=== PATIENT | female | born 1975 | race Two or more races ===

== ENCOUNTER → 2017-05-11 07:51 | Outpatient (CLI) | payer OTHER ==
[~2017-05-11] VITALS: Ht 152.4 cm; Wt 53.1 kg
[~2017-05-11 07:51] MED LIST: BUCALSEP SPRAY30 ML MM; FIORICET 50-301 EACH PO; GILTUSS TR TAB1 EACH PO; HYZAAR 50-12.1 UDTAB; LEVAQUIN500 MG PO; MAXITROL EYE DRO5 ML OP; TOBREX 0.30.15 MG/DR OP; TOPROL XL25 M1 PO; URETRON DS1 TAB PO; VOLTAREM 50 MG PO; ZANTAC300 MG PO; ZITHROMAX TRI-500 MG PO; ZYRTEC10 MG PO
== END | disposition home or self-care (01) ==
LOC: PPHC 07:51
DX: M54.89 Other dorsalgia (principal); Z87.442 Personal history of urinary calculi

== ENCOUNTER 2017-05-11 09:21 | Outpatient (CLI) | payer OTHER | END 2017-05-11 10:02 | disposition home or self-care (01) | LOC: LAB 09:21 | DX: M54.9 Dorsalgia, unspecified (principal); Z87.442 Personal history of urinary calculi ==

== ENCOUNTER → 2017-05-26 | Emergency (ER) | payer OTHER ==
[~2017-05-26] VITALS: Ht 154.9 cm; Wt 53.1 kg
== END | disposition home or self-care (01) ==
LOC: ER 17:18
DX: N12 Tubulo-interstitial nephritis, not specified as acute or chronic (principal); N30.80 Other cystitis without hematuria

== ENCOUNTER 2017-07-18 04:02 | Emergency (ER) | payer OTHER ==
[~2017-07-18] VITALS: Ht 154.9 cm; Wt 54.9 kg
[2017-07-18] MEDS ORDERED: HYZAAR 50-12.51 EACH (04:23)
[2017-07-18] MEDS ORDERED: PROZAC40 MG (04:24)
[2017-07-18] MEDS ORDERED: WELLBUTRIN SR150 MG (04:24)
== END 2017-07-18 08:47 | disposition home or self-care (01) ==
LOC: ER 04:02
DX: R51 Headache (principal); M62.838 Other muscle spasm

== ENCOUNTER 2017-07-27 12:49 | Outpatient (CLI) | payer OTHER ==
[~2017-07-27 12:49] MED LIST changes: +HYZAAR 50-12.51 EACH; +PROZAC40 MG; +WELLBUTRIN SR150 MG
== END 2017-07-27 17:11 | disposition home or self-care (01) ==
LOC: LAB 12:49
DX: N20.0 Calculus of kidney (principal); E83.52 Hypercalcemia

== ENCOUNTER → 2017-09-06 | Outpatient (CLI) | payer OTHER | END | disposition home or self-care (01) | LOC: PPHC 15:43 | DX: J06.9 Acute upper respiratory infection, unspecified (principal) ==

== ENCOUNTER 2018-02-28 16:25 | Emergency (ER) | payer OTHER ==
[~2018-02-28] VITALS: Ht 154.9 cm; Wt 60.3 kg
== END 2018-02-28 20:42 | disposition home or self-care (01) ==
LOC: ER 16:25
DX: R53.81 Other malaise (principal)

== ENCOUNTER 2018-03-19 07:15 | Emergency (ER) | payer OTHER ==
[~2018-03-19] VITALS: Ht 154.9 cm; Wt 60.3 kg
[2018-03-19] MEDS ORDERED: AMBIEN10 MG (07:39)
== END 2018-03-19 09:30 | disposition home or self-care (01) ==
LOC: ER 07:15
DX: H01.002 Unspecified blepharitis right lower eyelid (principal)

== ENCOUNTER 2018-07-29 08:03 | Outpatient (CLI) | payer OTHER ==
[~2018-07-29 08:03] MED LIST changes: +AMBIEN10 MG
== END 2018-07-29 08:12 | disposition home or self-care (01) ==
LOC: LAB 08:03
DX: I10 Essential (primary) hypertension (principal); E03.8 Other specified hypothyroidism; E55.9 Vitamin D deficiency, unspecified; E78.2 Mixed hyperlipidemia; Z13.1 Encounter for screening for diabetes mellitus; Z12.11 Encounter for screening for malignant neoplasm of colon

== ENCOUNTER → 2018-08-02 11:40 | Outpatient (CLI) | payer OTHER | END | disposition home or self-care (01) | LOC: LAB 11:40 | DX: I10 Essential (primary) hypertension (principal); E03.8 Other specified hypothyroidism; E55.9 Vitamin D deficiency, unspecified; E78.2 Mixed hyperlipidemia; Z13.1 Encounter for screening for diabetes mellitus; Z12.11 Encounter for screening for malignant neoplasm of colon ==

== ENCOUNTER 2018-08-03 13:30 | Outpatient (CLI) | payer OTHER | END 2018-08-03 13:33 | disposition home or self-care (01) | LOC: MAMO-SONO 13:30 | DX: E04.1 Nontoxic single thyroid nodule (principal); Z12.31 Encounter for screening mammogram for malignant neoplasm of breast ==

== ENCOUNTER 2018-08-15 07:31 | Outpatient (CLI) | payer OTHER | END 2018-08-15 07:33 | disposition home or self-care (01) | LOC: SONOGRAMA 07:31 | DX: E04.2 Nontoxic multinodular goiter (principal) ==

== ENCOUNTER 2018-08-16 13:27 | Outpatient (CLI) | payer OTHER | END 2018-08-16 13:40 | disposition home or self-care (01) | LOC: SONOGRAMA 13:27 → MAMO-SONO 13:45 | DX: M60.19 Interstitial myositis, multiple sites (principal) ==

== ENCOUNTER 2018-09-26 07:00 | Inpatient (IN) | payer OTHER ==
[~2018-09-26] VITALS: Ht 154.9 cm; Wt 64.4 kg
[2018-09-28] MEDS ORDERED: DOXEPIN HCL10 MG PO (11:14)
== END 2018-10-11 12:55 | disposition home or self-care (01) | DRG 625 ==
LOC: O/R 10-06 04:10 → SURH 10-06 04:10
PROVIDERS: ADMIT Specialist
PROC: 0BH17EZ Insertion of Endotracheal Airway into Trachea, Via Natural or Artificial Opening (ICD-10-PCS; 2018-10-06)
PROC: 5A1945Z Respiratory Ventilation, 24-96 Consecutive Hours (ICD-10-PCS; 2018-10-06)
PROC: B246ZZZ Ultrasonography of Right and Left Heart (ICD-10-PCS; 2018-10-06)
PROC: 3E0F7GC Introduction of Other Therapeutic Substance into Respiratory Tract, Via Natural or Artificial Opening (ICD-10-PCS; 2018-10-06)
PROC: 0GTK0ZZ Resection of Thyroid Gland, Open Approach (ICD-10-PCS; principal; 2018-10-06 09:15)
PROC: 4A12X4Z Monitoring of Cardiac Electrical Activity, External Approach (ICD-10-PCS; 2018-10-07)
DX: C73 Malignant neoplasm of thyroid gland (principal); J95.821 Acute postprocedural respiratory failure; Z99.11 Dependence on respirator [ventilator] status; J98.11 Atelectasis; I10 Essential (primary) hypertension; F32.89 Other specified depressive episodes; R06.1 Stridor; E83.51 Hypocalcemia; R13.19 Other dysphagia; E89.0 Postprocedural hypothyroidism

== ENCOUNTER 2018-09-26 09:53 | Outpatient (CLI) | payer OTHER | END 2018-09-26 10:06 | disposition home or self-care (01) | LOC: LAB 09:53 | DX: C73 Malignant neoplasm of thyroid gland (principal); Z01.812 Encounter for preprocedural laboratory examination; I10 Essential (primary) hypertension ==

== ENCOUNTER 2018-10-04 08:43 | Outpatient (CLI) | payer OTHER ==
[~2018-10-04 08:43] MED LIST changes: +DOXEPIN HCL10 MG PO
== END 2018-10-04 18:32 | disposition home or self-care (01) ==
LOC: LAB 08:43
DX: Z01.818 Encounter for other preprocedural examination (principal)

== ENCOUNTER → 2018-11-26 | Outpatient (CLI) | payer OTHER | END | disposition home or self-care (01) | LOC: NUCLEAR 11-25 14:00 | DX: C73 Malignant neoplasm of thyroid gland (principal); E89.0 Postprocedural hypothyroidism | CPT/HCPCS: 79005; A9517 ==

== ENCOUNTER 2018-11-30 09:24 | Outpatient (CLI) | payer OTHER | END 2018-11-30 14:11 | disposition home or self-care (01) | LOC: NUCLEAR 09:24 | DX: C73 Malignant neoplasm of thyroid gland (principal); E89.0 Postprocedural hypothyroidism ==

== ENCOUNTER 2019-01-06 14:43 | Outpatient (CLI) | payer OTHER | END 2019-01-06 14:50 | disposition home or self-care (01) | LOC: LAB 14:43 | DX: C73 Malignant neoplasm of thyroid gland (principal); E83.51 Hypocalcemia ==

== ENCOUNTER 2019-03-31 09:59 | Outpatient (CLI) | payer OTHER | END 2019-03-31 15:00 | disposition home or self-care (01) | LOC: LAB 09:59 | DX: C73 Malignant neoplasm of thyroid gland (principal); E89.0 Postprocedural hypothyroidism ==

== ENCOUNTER 2019-06-27 07:27 | Outpatient (CLI) | payer OTHER | END 2019-06-27 07:36 | disposition home or self-care (01) | LOC: LAB 07:27 | DX: D64.89 Other specified anemias (principal); E11.9 Type 2 diabetes mellitus without complications; E78.2 Mixed hyperlipidemia; I10 Essential (primary) hypertension; E03.8 Other specified hypothyroidism; C73 Malignant neoplasm of thyroid gland ==

== ENCOUNTER 2019-07-12 16:59 | Outpatient (CLI) | payer OTHER | END 2019-07-12 17:06 | disposition home or self-care (01) | LOC: LAB 16:59 | DX: J11.1 Influenza due to unidentified influenza virus with other respiratory manifestations (principal) ==

== ENCOUNTER 2019-09-16 10:55 | Outpatient (CLI) | payer OTHER | END 2019-09-16 13:20 | disposition home or self-care (01) | LOC: LAB 10:55 | DX: C73 Malignant neoplasm of thyroid gland (principal); E89.0 Postprocedural hypothyroidism ==

== ENCOUNTER 2019-10-25 09:55 | Outpatient (CLI) | payer OTHER | END 2019-10-25 09:59 | disposition home or self-care (01) | LOC: LAB 09:55 | PROVIDERS: ATTEND General Practice | DX: J11.1 Influenza due to unidentified influenza virus with other respiratory manifestations (principal); Z20.828 Contact with and (suspected) exposure to other viral communicable diseases; R51 Headache; R07.0 Pain in throat ==

== ENCOUNTER 2019-11-24 14:31 | Outpatient (CLI) | payer OTHER | END 2019-11-24 14:36 | disposition home or self-care (01) | LOC: LAB 14:31 | PROVIDERS: ATTEND Internal Medicine Sports Medicine | DX: C73 Malignant neoplasm of thyroid gland (principal); E89.0 Postprocedural hypothyroidism ==

== ENCOUNTER 2019-12-13 14:09 | Outpatient (CLI) | payer OTHER | END 2019-12-13 14:20 | disposition home or self-care (01) | LOC: SONOGRAMA 14:09 → MAMO-SONO 14:45 | PROVIDERS: ATTEND Internal Medicine Sports Medicine | DX: M54.2 Cervicalgia (principal); R07.89 Other chest pain; R51 Headache; C73 Malignant neoplasm of thyroid gland ==

== ENCOUNTER 2019-12-14 09:11 | Outpatient (CLI) | payer OTHER | END 2019-12-14 09:14 | disposition home or self-care (01) | LOC: LAB 09:11 | PROVIDERS: ATTEND Internal Medicine Cardiovascular Disease | DX: E03.8 Other specified hypothyroidism (principal); E78.00 Pure hypercholesterolemia, unspecified; I11.9 Hypertensive heart disease without heart failure ==

== ENCOUNTER 2020-01-30 09:22 | Outpatient (CLI) | payer OTHER ==
[2020-01-30] MEDS ORDERED: SYNTHROID75 MCG PO (16:02)
[2020-01-30] MEDS ORDERED: CALCIUM + VIT1 EACH PO (16:03)
== END 2020-01-30 15:51 | disposition home or self-care (01) ==
LOC: LAB 09:22 → PPH VACUNA 09:22 → LAB 15:51
DX: Z23 Encounter for immunization (principal)

== ENCOUNTER 2020-01-30 15:46 | Emergency (ER) | payer OTHER ==
[~2020-01-30] VITALS: Ht 154.9 cm; Wt 59.4 kg
[2020-01-30] MEDS ORDERED: SYNTHROID75 MCG PO (16:02)
[2020-01-30] MEDS ORDERED: CALCIUM + VIT1 EACH PO (16:03)
== END 2020-01-30 19:25 | disposition home or self-care (01) ==
LOC: ER 15:46
DX: R51 Headache (principal); F41.8 Other specified anxiety disorders

== ENCOUNTER 2020-02-09 07:41 | Outpatient (CLI) | payer OTHER ==
[~2020-02-09 07:41] MED LIST changes: +CALCIUM + VIT1 EACH PO; +SYNTHROID75 MCG PO
== END 2020-02-09 07:52 | disposition home or self-care (01) ==
LOC: LAB 07:41
PROVIDERS: ATTEND Internal Medicine Sports Medicine
DX: C73 Malignant neoplasm of thyroid gland (principal); I11.9 Hypertensive heart disease without heart failure

== ENCOUNTER 2020-04-26 18:37 | Emergency (ER) | payer OTHER ==
[~2020-04-26] VITALS: Ht 154.9 cm; Wt 59.0 kg
== END 2020-04-26 20:54 | disposition home or self-care (01) ==
LOC: ER 18:37
DX: S80.02XA Contusion of left knee, initial encounter (principal); S80.01XA Contusion of right knee, initial encounter; S70.02XA Contusion of left hip, initial encounter; S70.01XA Contusion of right hip, initial encounter; M54.5 Low back pain; M79.641 Pain in right hand; W18.31XA Fall on same level due to stepping on an object, initial encounter; Y93.89 Activity, other specified; Y92.238 Other place in hospital as the place of occurrence of the external cause; Y99.8 Other external cause status

== ENCOUNTER → 2020-05-20 07:25 | Outpatient (CLI) | payer OTHER ==
[~2020-05-20 07:25] MED LIST changes: +NAPROXEN500 MG PO
== END | disposition home or self-care (01) ==
LOC: LAB 07:25
PROVIDERS: ATTEND Internal Medicine Cardiovascular Disease
DX: E11.9 Type 2 diabetes mellitus without complications (principal); E89.0 Postprocedural hypothyroidism; C73 Malignant neoplasm of thyroid gland; E78.2 Mixed hyperlipidemia

== ENCOUNTER 2020-05-30 17:51 | Emergency (ER) | payer OTHER ==
[~2020-05-30] VITALS: Ht 154.9 cm; Wt 61.2 kg
== END 2020-05-30 21:18 | disposition home or self-care (01) ==
LOC: ER 17:51
DX: G44.40 Drug-induced headache, not elsewhere classified, not intractable (principal); T50.Z95A Adverse effect of other vaccines and biological substances, initial encounter

== ENCOUNTER 2020-06-13 14:15 | Outpatient (CLI) | payer OTHER | END 2020-06-13 14:19 | disposition home or self-care (01) | LOC: LAB 14:15 | PROVIDERS: ATTEND Physical Medicine & Rehabilitation | DX: Z13.828 Encounter for screening for other musculoskeletal disorder (principal); M25.50 Pain in unspecified joint ==

== ENCOUNTER 2020-07-01 12:06 | Outpatient (CLI) | payer OTHER | END 2020-07-01 12:11 | disposition home or self-care (01) | LOC: LAB 12:06 | PROVIDERS: ATTEND Obstetrics & Gynecology | DX: E03.8 Other specified hypothyroidism (principal); I10 Essential (primary) hypertension; Z00.00 Encounter for general adult medical examination without abnormal findings; E78.00 Pure hypercholesterolemia, unspecified; Z11.4 Encounter for screening for human immunodeficiency virus [HIV]; E55.9 Vitamin D deficiency, unspecified; Z21 Asymptomatic human immunodeficiency virus [HIV] infection status; R79.89 Other specified abnormal findings of blood chemistry; Z12.11 Encounter for screening for malignant neoplasm of colon; N39.0 Urinary tract infection, site not specified ==

== ENCOUNTER 2020-07-03 12:54 | Outpatient (CLI) | payer OTHER | END 2020-07-03 15:00 | disposition home or self-care (01) | LOC: LAB 12:54 | PROVIDERS: ATTEND Obstetrics & Gynecology | DX: E03.8 Other specified hypothyroidism (principal); I10 Essential (primary) hypertension; N39.0 Urinary tract infection, site not specified; Z11.4 Encounter for screening for human immunodeficiency virus [HIV]; Z00.00 Encounter for general adult medical examination without abnormal findings; Z12.11 Encounter for screening for malignant neoplasm of colon; E55.9 Vitamin D deficiency, unspecified; Z21 Asymptomatic human immunodeficiency virus [HIV] infection status; R79.89 Other specified abnormal findings of blood chemistry; E78.00 Pure hypercholesterolemia, unspecified ==

== ENCOUNTER 2020-08-05 14:16 | Outpatient (CLI) | payer OTHER | END 2020-08-05 14:23 | disposition home or self-care (01) | LOC: LAB 14:16 | PROVIDERS: ATTEND Pediatrics Neonatal-Perinatal Medicine | DX: N20.0 Calculus of kidney (principal) ==

== ENCOUNTER → 2020-08-13 | Outpatient (CLI) | payer OTHER ==
[~2020-08-13] MED LIST changes: +COZAAR50 MG PO
== END | disposition home or self-care (01) ==
LOC: MRI 08-12 08:15
PROVIDERS: ATTEND Otolaryngology
DX: G93.89 Other specified disorders of brain (principal); R42 Dizziness and giddiness
CPT/HCPCS: 70551

== ENCOUNTER → 2020-08-27 10:02 | Outpatient (CLI) | payer OTHER | END | disposition home or self-care (01) | LOC: LAB 10:02 | PROVIDERS: ATTEND Internal Medicine Sports Medicine | DX: I10 Essential (primary) hypertension (principal); C73 Malignant neoplasm of thyroid gland; E89.0 Postprocedural hypothyroidism ==

== ENCOUNTER → 2020-09-04 13:12 | Outpatient (CLI) | payer OTHER | END | disposition home or self-care (01) | LOC: NUCLEAR 11:00 | PROVIDERS: ATTEND Internal Medicine Sports Medicine | DX: C73 Malignant neoplasm of thyroid gland (principal) | CPT/HCPCS: 78018; 78020; A9528 ==

== ENCOUNTER → 2020-09-11 12:49 | Outpatient (CLI) | payer OTHER | END | disposition home or self-care (01) | LOC: LAB 12:49 | PROVIDERS: ATTEND Neuromusculoskeletal Medicine & OMM | DX: M62.89 Other specified disorders of muscle (principal); G37.8 Other specified demyelinating diseases of central nervous system; R20.2 Paresthesia of skin; E03.8 Other specified hypothyroidism ==

== ENCOUNTER 2020-09-17 09:16 | Outpatient (CLI) | payer OTHER | END 2020-09-17 09:26 | disposition home or self-care (01) | LOC: SONOGRAMA 09:16 → MAMO-SONO 10:45 | PROVIDERS: ATTEND Internal Medicine Sports Medicine | DX: C73 Malignant neoplasm of thyroid gland (principal) ==

== ENCOUNTER → 2020-09-23 14:31 | Outpatient (CLI) | payer OTHER | END | disposition home or self-care (01) | LOC: LAB 14:31 | PROVIDERS: ATTEND Physical Medicine & Rehabilitation | DX: J12.82 Pneumonia due to coronavirus disease 2019 (principal); R05 Cough; R50.9 Fever, unspecified; R06.1 Stridor; R06.02 Shortness of breath; M35.81 Multisystem inflammatory syndrome; M35.89 Other specified systemic involvement of connective tissue; Z03.818 Encounter for observation for suspected exposure to other biological agents ruled out; Z20.822 Contact with and (suspected) exposure to COVID-19; Z11.52 Encounter for screening for COVID-19 ==

== ENCOUNTER 2021-01-02 10:36 | Outpatient (CLI) | payer OTHER | END 2021-01-02 10:38 | disposition home or self-care (01) | LOC: LAB 10:36 | PROVIDERS: ATTEND Internal Medicine Sports Medicine | DX: I10 Essential (primary) hypertension (principal); E03.8 Other specified hypothyroidism; E55.9 Vitamin D deficiency, unspecified ==